=== PATIENT | female | born 1970 ===

== ENCOUNTER 2021-04-13 00:55 | Emergency (ER) | payer OTHER, MEDICAID, SELFPAY ==
[2021-04-13 01:08] VITALS: BP 136/84; PULSE 87; RESP 17; TEMP 36.9; O2SAT 96
--- NOTE | 2021-04-13 01:10 | ED.GENADULT ---
HPI - General Adult General Chief complaint: Extremity Injury, Upper Stated complaint: Right wrist issue, arm pain Time Seen by Provider: 04/13/21 01:07 Source: patient Mode of arrival: Ambulatory Limitations: no limitations History of Present Illness HPI narrative: 50-year-old female who is here for multiple issues to include headache, ringing in her years and also pain and swelling in her right wrist with tingling in her fingers. All of the symptoms have been going on for several months. She states she has been evaluated for her right wrist discomfort and the past by an outside facility and had x-rays but has not followed up with the primary doctor. She states that the ringing in her ears have been there for the past couple weeks same with a headache. Has taken Tylenol for the headache. Related Data Allergies Allergy/AdvReac Type Severity Reaction Status Date / Time No Known Drug Allergies Allergy Verified 04/13/21 01:08 Review of Systems Constitutional Constitutional: Reports headache(s) Eyes Eyes: Reports system reviewed and no additional complaints, except as documented ENT Ears, Nose, Mouth, and Throat: Denies vertigo and Reports headache(s) Comments: Ringing in her ears Musculoskeletal Musculoskeletal: Reports tingling Comments: Right wrist pain Integumentary/Breasts Skin/Breast: Denies rash Neurologic Neurologic: Denies vertigo, Reports headache(s) and Reports tingling Hematologic/Lymphatic On Anticoagulants: No Allergic/Immunologic Allergic/Immunologic: Reports system reviewed and no additional complaints, except as documented Patient History Social History Smoking Status: Current every day smoker Exam Initial Vital Signs Initial Vital Signs: Vital Signs Temperature 98.5 F 04/13/21 01:08 Pulse Rate 87 04/13/21 01:08 Respiratory Rate 17 04/13/21 01:08 Blood Pressure 136/84 04/13/21 01:08 Pulse Oximetry 96 04/13/21 01:08 Const General: cooperative Limitations: mental status not altered HENMT Head: normal to inspection and normocephalic Ears: TM's normal bilaterally Nose: external nose normal Face and sinus: normal facial exam Resp Effort & Inspection: normal respiratory effort Cardio Rate: regular rate Pulses: radial pulses present Skin Lesions: no lesions Rashes: no rashes Neuro Sensory Exam: no sensory deficits noted Extrem General: capillary refill normal Other: Mild swelling to the right wrist Psych Appearance: grossly normal and well kempt Course Orders Ordered: Discontinued Medications Ibuprofen (Ibuprofen 400 Mg Tablet) 800 mg PO NOW ONE Stop: 04/13/21 01:32 Last Admin: 04/13/21 01:37 Dose: 800 mg Documented by: MARJ Vital Signs Vital signs: Vital Signs - 8 hr 04/13/21 01:08 04/13/21 01:39 Temperature 98.5 F Pulse Rate 87 80 Respiratory Rate 17 Blood Pressure 136/84 126/83 Pulse Oximetry 96 98 Medical Decision Making MDM Narrative Medical decision making narrative: Patient has a unremarkable exam. The swelling of her right wrist is not new in the symptoms are not new. I feel that we can hold on any radiologic studies for now. She has got a unremarkable ear exam. Low suspicion for intracranial hemorrhage or mass or meningitis given her presentation. Will have the patient contact her primary doctor for follow-up as I feel that she could be safely discharged home without further workup here in the ER. She did expressed understanding and agreement. Discharge Plan Departure Patient Disposition: Home Clinical Impression: Headache, Bilateral tinnitus Instructions: Tinnitus (Alternative Therapy), Ringing in the Ears Activity Restrictions/Additional Instructions: I recommend that you started antihistamine such as Claritin or Estella or Zyrtec. You can purchase these medications [id number] and the generic version is appropriate and potentially cheaper. If the ringing in your ears continue despite this recommend you talk with your primary doctor about further evaluation and potential referral to see ear nose and throat. Return to the emergency department for any new symptoms.
[2021-04-13] MEDS: IBUPROFEN 400 MG TABLET 800 MG PO (01:37)
[2021-04-13 01:39] VITALS: BP 126/83; PULSE 80; O2SAT 98
== END 2021-04-13 01:46 | disposition home or self-care (01) ==
PROVIDERS: Emergency Provider Emergency Medicine
DX: R51.9 Headache, unspecified (principal); H93.13 Tinnitus, bilateral; R20.2 Paresthesia of skin; M25.531 Pain in right wrist
CPT/HCPCS: 99282; 99283